=== PATIENT | male | born 1950 | race Caucasian/White ===

== ENCOUNTER → 2016-08-13 | Outpatient (CLI) | payer OTHER, MEDICARE ==
[~2016-08-13] MED LIST: CHOL400C7 PO; FLUT0.0529 NAE; GLCSUNK PO; METF500T5 PO; MULTTAB58 PO; SITA100T3 PO
[2016-08-13 09:43] LABS: BASO % 0.6 %; BASO ABS # 0.04 K/uL (0-0.2); COMPLETE YES; EOS % 3.1 %; HEMATOCRIT 43.1 % (42-52); IG% 0.9 %; LYMPH % 16.6 %; LYMPH ABS # 1.16 K/uL (1.2-3.4); MEAN CELL VOLUME 86.2 fL (80-100); MEAN CORPUSCULAR HEMOGLOBIN 28.8 pg (25-34); MEAN CORPUSCULAR HGB CONC 33.4 g/dl (32-36); MEAN PLATELET VOLUME 9.7 fL (7.4-10.4); MONO % 10.7 %; NEUT % 68.1 %; PLATELET COUNT 184 K/uL (130-400)
[2016-08-13 09:59] LABS: ESTIMATED AVERAGE GLUCOSE 151 mg/dl; HA1C FLAG Normal (Normal)
[2016-08-13 10:03] LABS: ALT/SGPT 24 U/L (12-78); AST/SGOT 16 U/L (15-37); BLOOD UREA NITROGEN 23 mg/dl (7-18); BUN/CREATININE RATIO 15.2 (10-20); CALCIUM 8.5 mg/dl (8.5-10.1); CARBON DIOXIDE 26 mmol/L (21-32); CHLORIDE 109 mmol/L (98-107); GLUCOSE 130 mg/dl (70-99); POTASSIUM 4.2 mmol/L (3.5-5.1); SODIUM 143 mmol/L (136-145)
[2016-08-13 10:05] LABS: ALB/GLOB RATIO 1.1 (0.9-2); ALKALINE PHOSPHATASE 112 U/L (45-117); CHOLESTEROL 193 mg/dl (0-200); CHOLESTEROL/HDL RATIO 4.3; HDL CHOLESTEROL 45 mg/dl; LDL CHOLESTEROL CALCULATED 132 mg/dl; TRIGLYCERIDES 78 mg/dl (0-150); VERY LOW DENSITY LIPOPROT CALC 16 mg/dl
--- NOTE | 2016-08-20 07:37 | CODING QUERY MEDICAL NECESSITY ---
CQSUPPORTING DIAGNOSIS NEEDED A supporting diagnosis is required for the test/procedure performed on this patient in order for us to be reimbursed by the patient's insurance. Please provide a supporting diagnosis for the following test/procedure listed below next to the test name along with your signature. *If there is no additional diagnosis for this patient that would support the following test/procedure please document that below next to the test/procedure. Test(s)/Procedure(s) that require a supporting diagnosis: DOS 08/13/16 GLYCATED HEMOGLOBIN Provider Signature: Date: Thank you Luciana Glover [employer] Management Once completed, please kindly fax back to [phone] For questions please call [phone]
== END | disposition home or self-care (01) ==
LOC: C.LAB 07:03
PROVIDERS: ATTEND Internal Medicine
DX: N18.9 Chronic kidney disease, unspecified (principal); E11.9 Type 2 diabetes mellitus without complications

== ENCOUNTER → 2017-03-20 | Outpatient (CLI) | payer OTHER, MEDICARE ==
[2017-03-20 09:45] LABS: BASO % 1.2 %; BASO ABS # 0.07 K/uL (0-0.2); EOS % 4.2 %; EOS ABS # 0.25 K/uL (0-0.5); HEMATOCRIT 41.1 % (42-52); IG# 0.04 K/uL (0.00-0.02); LYMPH % 16.9 %; LYMPH ABS # 1.02 K/uL (1.2-3.4); MEAN CELL VOLUME 86.3 fL (80-100); MEAN CORPUSCULAR HEMOGLOBIN 29.4 pg (25-34); MEAN CORPUSCULAR HGB CONC 34.1 g/dl (32-36); MONO % 10.6 %; MONO ABS # 0.64 K/uL (0.11-0.59); NEUT % 66.4 %; PLATELET COUNT 178 K/uL (130-400); RED CELL DISTRIBUTION WIDTH CV 13.4 % (11.5-14.5); RED CELL DISTRIBUTION WIDTH SD 42.4 fL (36.4-46.3); WHITE BLOOD COUNT 6.02 K/uL (4.8-10.8)
[2017-03-20 10:22] LABS: ALBUMIN 3.9 gm/dl (3.4-5.0); ALT/SGPT 24 U/L (12-78); BLOOD UREA NITROGEN 22 mg/dl (7-18); CALCIUM 8.8 mg/dl (8.5-10.1); CARBON DIOXIDE 24 mmol/L (21-32); CHOLESTEROL 177 mg/dl (0-200); CREATININE 1.48 mg/dl (0.60-1.40); GLUCOSE 158 mg/dl (70-99); POTASSIUM 3.9 mmol/L (3.5-5.1); SODIUM 141 mmol/L (136-145)
[2017-03-20 10:25] LABS: ALKALINE PHOSPHATASE 106 U/L (45-117); AST/SGOT 16 U/L (15-37); LDL CHOLESTEROL CALCULATED 122 mg/dl; TOTAL PROTEIN 7.7 gm/dl (6.4-8.2)
[2017-03-20 11:24] LABS: HEMOGLOBIN A1C 7.4 % (4.5-5.6)
== END | disposition home or self-care (01) ==
LOC: C.LAB 08:00
PROVIDERS: ATTEND Internal Medicine
DX: G47.33 Obstructive sleep apnea (adult) (pediatric) (principal)

== ENCOUNTER → 2017-04-13 | Outpatient (CLI) | payer OTHER, MEDICARE | END | disposition home or self-care (01) | LOC: C.LAB1850 16:20 | PROVIDERS: ATTEND Internal Medicine Nephrology | DX: N18.9 Chronic kidney disease, unspecified (principal) ==

== ENCOUNTER → 2017-07-10 | Outpatient (CLI) | payer OTHER, MEDICARE ==
[2017-07-10 09:17] LABS: ALBUMIN 4.2 gm/dl (3.4-5.0); ALT/SGPT 22 U/L (12-78); AST/SGOT 17 U/L (15-37); BLOOD UREA NITROGEN 38 mg/dl (7-18); CALCIUM 8.8 mg/dl (8.5-10.1); CARBON DIOXIDE 28 mmol/L (21-32); CHOLESTEROL 187 mg/dl (0-200); GLUCOSE 150 mg/dl (70-99); SODIUM 143 mmol/L (136-145)
[2017-07-10 09:20] LABS: ALKALINE PHOSPHATASE 97 U/L (45-117); LDL CHOLESTEROL CALCULATED 125 mg/dl; TOTAL PROTEIN 7.7 gm/dl (6.4-8.2)
== END | disposition home or self-care (01) ==
LOC: C.LAB 07:22
PROVIDERS: ATTEND Internal Medicine
DX: N18.3 Chronic kidney disease, stage 3 (moderate) (principal); M25.562 Pain in left knee

== ENCOUNTER → 2017-10-15 | Outpatient (CLI) | payer OTHER, MEDICARE ==
[2017-10-15 09:49] LABS: ALBUMIN 3.6 gm/dl (3.4-5.0); BLOOD UREA NITROGEN 24 mg/dl (7-18); CALCIUM 8.4 mg/dl (8.5-10.1); CARBON DIOXIDE 24 mmol/L (21-32); CREATININE 1.54 mg/dl (0.60-1.40); GLUCOSE 159 mg/dl (70-99); PHOSPHORUS 2.7 mg/dl (2.5-4.9); POTASSIUM 4.2 mmol/L (3.5-5.1); SODIUM 136 mmol/L (136-145)
== END | disposition home or self-care (01) ==
LOC: C.LAB 07:16
PROVIDERS: ATTEND Internal Medicine Nephrology
DX: N18.3 Chronic kidney disease, stage 3 (moderate) (principal)

== ENCOUNTER 2024-12-19 15:34 | Inpatient (IN) ==
[2024-12-19] MEDS: SODIUM CHLORIDE 0.9% 1,000 ML IV ONE (16:12)
--- NOTE | 2024-12-19 16:15 | Emergency Department Note ---
Impression & Plan Acute hypoxemic respiratory failure, Pleural effusion ED Provider Note NAME: JANUARY VALDEZ AGE: 74 SEX: M : 1950 ARRIVES VIA: Walk-In INFORMANT: Patient ED PROVIDER(S): Isac Hernandez DO CHIEF COMPLAINT: hypoxic HPI: Patient is a 74-year-old male who presents to the ER with a past medical history of renal cell carcinoma, diabetes, pulmonary nodules and pleural effusions for hypoxia. He was at his PCPs office and was found to be hypoxic at 86%. Was placed on nasal cannula and transferred here. Over a week ago he was at [facility] [place] and found to be hypoxic secondary to a pleural effusion. He was tapped and removed 2 L of fluid from his lung. He denies any new belly pain, nausea, vomiting, or diarrhea. No dysuria, urgency, or frequency. No other exacerbating or remitting factors. ADDITIONAL HISTORY OBTAINED: Per HPI Chronic Medical/Social Conditions Affecting Care: Per HPI PAST MEDICAL HISTORY:See Below PAST SURGICAL HISTORY:See Below FAMILY HISTORY:See Below SOCIAL HISTORY:See Below HOME MEDICATIONS:See Below ALLERGIES:See Below VITALS:See Below PHYSICAL EXAMINATION: GENERAL: Sitting up in bed, alert, well appearing, well nourished, no distress, non-toxic EYE EXAM: normal conjunctiva. PERRL and EOM's grossly intact. OROPHARYNX: mucous membranes are moist NECK: supple, no nuchal rigidity, no adenopathy, non-tender LUNGS: Diminished on the left. Normal chest wall mechanics HEART: no murmurs, S1 normal and S2 normal ABDOMEN: abdomen soft, non-tender, normo-active bowel sounds, no masses, no rebound or guarding. SKIN: no rashes and no bruising UPPER EXTREMITIES: upper extremities are grossly normal. LOWER EXTREMITIES: No pitting edema. NEURO EXAM: Normal sensorium, cranial nerves II-XII grossly intact, normal speech, no gross weakness of arms, no gross weakness of legs. No drift. Finger to nose intact. Gross sensation intact. MEDICAL DECISION MAKING: Patient is a 74-year-old male who presents ER for hypoxia. IV was established and blood work was obtained. He was placed on 2 L nasal cannula throughout his stay in the ER. Labs showed no significant leukocytosis. Mild anemia at 11. BMP with a glucose slightly elevated to 90. Troponin was negative. Lipase was normal. Chest x-ray consistent with a pleural effusion. Discussed case with pulmonology and the hospitalist and patient was admitted and will likely be tapped/further evaluated by pulm as an inpatient. Consults/Care Managements Discussions: Per [facility] Triage Nursing notes reviewed. Limited review of prior medical records performed Vital Signs: reviewed and remarkable for tachy Differential diagnosis: Differential diagnoses includes but is not limited to pneumonia, bronchitis, COPD/Asthma exacerbation, pneumothorax, pulmonary embolism, congestive heart failure, acute coronary syndrome ER treatment provided: See below Diagnostics interpreted by me include EKG and cardiac monitoring as listed below: -Cardiac Monitoring: An order was placed for continuous cardiac monitoring. The monitor shows a rate of 112 with sinus rhythm. -ECG: Sinus tachycardia rate of 112 Normal axis PVCs QTc 461 -Laboratory studies:Interpreted by me as stated above in MDM and shown below. Imaging studies: Xrays: As interpreted by me: Portable AP upright 1 view of the chest shows large left pleural effusion CTs show: none Procedures:none Critical Care: I have personally spent 33 minutes of critical care time in the direct management of this patient. This includes bedside care, interpretation of diagnostic studies, and testing, discussion with consultants, patient, and family members, and other required patient management activities. This 33 minutes is in excess of all separately billable procedures. Past Med/Surg History Problem List (Updated 12/19/24 @ 20:19 by Isac Hernandez DO) Pleural effusion (Acute) Acute hypoxemic respiratory failure (Acute) Recurrent left pleural effusion Gross hematuria Metastatic renal cell carcinoma (Chronic 01/20/24) Hyperlipidemia Type 2 diabetes mellitus stable per pt Hyperlipidemia Microalbuminuria due to type 2 diabetes mellitus (Chronic) Seborrheic dermatitis (Chronic) Sleep apnea (Chronic) BIPAP-compliant Arthritis (Chronic) CKD (chronic kidney disease), stage III (Chronic) Follows with [facility] (Dr. 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 Obesity Degenerative arthritis of knee, bilateral Solitary right kidney Hx of renal cell cancer History of blood transfusion Surgical History History of cervical spinal arthrodesis S/P right rotator cuff repair History of left knee replacement History of nephrectomy, left History of hernia repair History of anesthesia reaction History of colonoscopy History of neck surgery Nausea and vomiting after administration of anesthetic agent History of sinus surgery History of tonsillectomy History of left knee surgery Family History Father Hypertension Brother Heart disease Hypertension Sister Family history of diabetes mellitus Other No family history of adverse response to anesthesia Denies family history of Ovarian cancer Prostate cancer Myocardial infarction Breast cancer Colorectal cancer Social History Smoking Status: Never smoker Tobacco Type: Smokeless Tobacco (Dip or Chew) Age Started Using Tobacco: 19; Age Quit Using Tobacco: 43; Second Hand Exposure: No; Do You Dip or Chew Tobacco: No (quit 35+ years ago); Hx Alcohol Use: Yes Alcohol type: beer Alcohol Intake Frequency Comment: rare Hx Substance Use: No Preferred Language: Yi Communication Ability: Effective Visual Impairment: Limited Hearing Ability: Normal Parts Department Manager Required: No Beliefs That Will Affect Care: None marital status: Current Living Situation: Spouse current occupational status: employed current occupation: SELF EMPLOYED [employer] How many Children do You have: 3 Feels Safe at Home: Yes Childhood Exposure to Second-Hand Smoke: Yes caffeine: Yes (coffee, diet pepsi ) Dental Care, Regularly: Yes Physical Activity Frequency: 1-2 Times per Week Physical Activity Frequency Comment: Walk, riding indoor bike, work outside Seatbelt Use: always Sunscreen Use: Yes Assistive Devices: BiPap and Glasses Allergies Allergies Allergy/AdvReac Type Severity Reaction Status Date / Time tetanus toxoid, adsorbed Allergy Mild Arm Verified 12/19/24 14:31 swelling, low-grade fever tree and shrub pollen Allergy Mild Bantam Verified 12/19/24 14:31 tree- sinus congestion NSAIDS (Non-Steroidal AdvReac Unknown Unknown Verified 12/19/24 14:31 Anti-Inflamma Home Meds Home Medications Medication Instructions Recorded Confirmed multivitamin (Multiple Vitamins 1 tab PO QAM 02/24/18 12/19/24 tablet) loratadine 10 mg tablet (Claritin) 10 mg PO QAM 04/26/19 12/19/24 hydrocortisone 2.5 % topical 1 applic topical BID PRN . 02/17/23 12/19/24 ointment baclofen 5 mg tablet 2.5 mg PO BID 05/02/24 12/19/24 buprenorphine 10 mcg/hour weekly 1 patch transdermal Q7D 05/02/24 12/19/24 transdermal patch (Butrans) docusate sodium 100 mg capsule 100 mg PO BID 05/02/24 12/19/24 gabapentin 100 mg capsule 100 mg PO TID 05/02/24 12/19/24 hydromorphone 4 mg tablet 4 mg PO Q4H PRN Pain 05/02/24 12/19/24 ondansetron HCl 4 mg tablet 4 mg PO Q6H PRN n/v 05/02/24 12/19/24 polyethylene glycol 3350 17 gram 17 g PO DAILY 05/02/24 12/19/24 oral powder packet CPAP Supplies 12/19/24 12/19/24 lenvatinib 10 mg/day (10 mg x 1) 10 mg PO UD 12/19/24 12/19/24 capsule (Lenvima) Previous Rx's Medication Instructions Recorded blood-glucose meter (OneTouch #1 ea 02/16/23 Verio Reflect Meter) insulin syringe-needle U-100 0.3 #100 ea 02/14/24 mL 31 gauge x 5/16" (BD Insulin Syringe Ultra-Fine) OneTouch Verio test strips (blood #100 ea 03/31/24 sugar diagnostic) lancets 30 gauge (OneTouch Delica #100 ea 03/31/24 Plus Lancet) blood-glucose sensor (Dexcom G7 #1 ea 05/02/24 Sensor device) insulin aspart U-100 100 unit/mL 7 unit (0.07 mL) subcut TID #60 mL 05/02/24 (3 mL) subcutaneous pen (Novolog FlexPen U-100 Insulin aspart) tizanidine 4 mg tablet 4 mg PO BID PRN muscle spasticity 05/02/24 #30 tabs acetone (urine) test (Ketostix #25 ea 05/03/24 strips) glucagon 3 mg/actuation nasal 3 mg intranasal ONCE PRN severe 05/03/24 spray (Baqsimi) hypoglycemia (unconscious) #2 ea clotrimazole-betamethasone 1 1 applic topical BID #45 grams 05/09/24 %-0.05 % topical cream pen needle, diabetic 32 gauge x #200 ea 08/28/24" pen needle, diabetic 32 gauge x #400 ea 10/20/24" (Elyse 2nd Gen Pen Needle) Lantus Courtostar U-100 Insulin 100 11 unit (0.11 mL) subcut DAILY #30 12/08/24 unit/mL (3 mL) subcutaneous pen mL (insulin glargine) Results & Data (ED) Vital Signs Vital Signs - 24 hr 12/19/24 15:46 12/19/24 16:07 12/19/24 16:18 Temperature 36.4 C L Temperature Source Oral Pulse Rate 118 H 112 H Pulse Rate [Apical] Respiratory Rate 24 Respiratory Effort / Characteristics SOB on Exertion Spontaneous Respiratory Pattern Regular Blood Pressure 126/82 Blood Pressure [Right Arm] Blood Pressure Mean 96 Blood Pressure Mean [Right Arm] Pulse Oximetry 94 Oxygen Delivery Method Room Air Oxygen Flow Rate Sepsis Recent Fever Within 48 Hours No Sepsis New/Unexplained Change in Mental Status No Sepsis Action Taken by Nursing No Action Required Oxygen Flow Rate - Titration Pulse Oximetry Post Tiitration 12/19/24 16:18 12/19/24 16:18 12/19/24 16:18 Temperature Temperature Source Pulse Rate 106 H Pulse Rate [Apical] 106 H Respiratory Rate 16 16 Respiratory Effort / Characteristics Respiratory Pattern Blood Pressure Blood Pressure [Right Arm] 126/86 Blood Pressure Mean Blood Pressure Mean [Right Arm] 99 Pulse Oximetry 88 L 96 96 Oxygen Delivery Method Nasal Cannula Nasal Cannula Nasal Cannula Oxygen Flow Rate 0 2 2 Sepsis Recent Fever Within 48 Hours Sepsis New/Unexplained Change in Mental Status Sepsis Action Taken by Nursing Oxygen Flow Rate - Titration 2 Pulse Oximetry Post Tiitration 96 Laboratory Data 12/19/24 16:14 12/19/24 16:14 Lab Results 12/19/24 Range/Units 16:14 WBC 8.41 (4.8-10.8) K/ul RBC 4.45 L (4.70-6.10) M/uL Hgb 11.7 L (14.0-18.0) g/dl Hct 36.8 L (42.0-52.0) % MCV 82.7 (80.0-100.0) fL MCH 26.3 (25.0-34.0) pg MCHC 31.8 L (32.0-36.0) g/dL RDW Std Deviation 50.8 H (36.4-46.3) fL RDW Coeff of Lonny 16.9 H (11.5-14.5) % Plt Count 212 (130-400) K/uL MPV 10.0 (9.4-12.4) fL Immature Gran % (Auto) 1.8 % Neut % (Auto) 77.5 % Lymph % (Auto) 5.2 % [place] % (Auto) 12.4 % Eos % (Auto) 2.5 % Baso % (Auto) 0.6 % Neut # (Auto) 6.52 H (1.40-6.50) K/uL Lymph # (Auto) 0.44 L (1.20-3.40) K/uL [place] # (Auto) 1.04 H (0.11-0.59) K/uL Eos # (Auto) 0.21 (0.00-0.50) K/uL Baso # (Auto) 0.05 (0.00-0.20) K/uL Immature Gran # (Auto) 0.15 (0.01-0.20) K/uL Sodium 134 L (136-145) mmol/L Potassium TNP Chloride 96 L (98-107) mmol/L Carbon Dioxide 29 (21-32) mmol/L Anion Gap 9 (3-11) BUN 35 H (6-23) mg/dl Creatinine 1.37 (0.6-1.4) mg/dl Est Cr Clr Drug Dosing 52.5 ml/min eGFR 54.47 BUN/Creatinine Ratio 25.5 H (10-20) Glucose 290 H (70-99(Fasting)) mg/dl Calcium 9.6 (8.6-10.3) mg/dl Total Bilirubin 0.4 (0.2-1.0) mg/dl AST TNP ALT 23 (7-52) U/L Alkaline Phosphatase 102 (34-104) U/L Troponin I High Sens 5.8 (0-20) pg/ml Total Protein 7.1 (6.0-8.3) gm/dl Albumin 3.5 (3.4-5.0) gm/dl Globulin 3.6 (2.5-4.0) gm/dl Albumin/Globulin Ratio 1.0 (0.9-2) Lipase 6 L (11-82) U/L Administered Medications Heparin Sodium (Porcine) (Heparin Sod 5,000 Unit/0.5 Ml Vial) 5,000 units SQ Q8 JOHN Stop: 01/18/25 21:59 Last Admin: 12/19/24 19:45 Dose: Not Given Documented By: Admin: 12/19/24 19:20 Dose: Not Given Documented By: MG Discontinued Medications Sodium Chloride (Nss) 1,000 mls @ 999 mls/hr IV .Q1H1M ONE Stop: 12/19/24 17:10 Last Infusion: 12/19/24 17:18 Dose: Infused Documented By: Admin: 12/19/24 16:12 Dose: 999 mls/hr Documented By: LORENZO Imaging Data Radiologist's Impression: Chest X-Ray 12/19/24 15:59 EXAM: X-ray chest one-view portable CLINICAL HISTORY: Low O2 [place]: [place] [address] 24 TECHNIQUE: AP portable semierect FINDINGS: The chest is well-expanded. Near-total opacification of the left hemithorax noted with small amount of gas, possibly aerated lung in the left lung apex. Right-sided Mediport catheter present with distal tip in the expected position of the atriocaval junction. No right lung opacification, mass or pleural effusion. Trachea is midline. Moderate osseous demineralization is noted. IMPRESSION: Near-total opacification of the left hemithorax favoring a large pleural effusion. Thoracentesis could be considered if appropriate. ACT 112: Positive. There are findings on this examination that require communication between the performing entity and the patient following Patient Test Result Information Act ([place] ACT 112) guidelines. Electronically signed by Dara Pederson 12-19-2024 4:41 PM Discharge Plan Visit Data Chief Complaint: Respiratory Problems Stated Complaint: OX LOW ED Provider: Isac Hernandez Discharge Problem: Acute hypoxemic respiratory failure, Pleural effusion Patient Disposition: Admitted As Inpatient Condition: Serious Discharge Instructions Interventions: ED Discharge Assessment Last Done: 12/19/24 18:35
[2024-12-19 16:31] LABS: Hematocrit (blood only) 36.8 % (42.0-52.0); Hemoglobin 11.7 g/dl (14.0-18.0); Immature Granulocytes # (auto) 0.15 K/uL (0.01-0.20); Immature Granulocytes % (auto) 1.8 %; Mean Corpuscular Hemoglobin 26.3 pg (25.0-34.0); Mean Corpuscular Volume 82.7 fL (80.0-100.0); Platelet Count 212 K/uL (130-400); RDW Standard Deviation 50.8 fL (36.4-46.3); Red Blood Count 4.45 M/uL (4.70-6.10); White Blood Count 8.41 K/ul (4.8-10.8)
--- NOTE | 2024-12-19 16:42 | XRay Report ---
EXAM: X-ray chest one-view portable CLINICAL HISTORY: Low O2 [place]: [place] [id number] [id number] TECHNIQUE: AP portable semierect FINDINGS: The chest is well-expanded. Near-total opacification of the left hemithorax noted with small amount of gas, possibly aerated lung in the left lung apex. Right-sided Mediport catheter present with distal tip in the expected position of the atriocaval junction. No right lung opacification, mass or pleural effusion. Trachea is midline. Moderate osseous demineralization is noted. IMPRESSION: Near-total opacification of the left hemithorax favoring a large pleural effusion. Thoracentesis could be considered if appropriate. ACT 112: Positive. There are findings on this examination that require communication between the performing entity and the patient following Patient Test Result Information Act ([place] ACT 112) guidelines. Electronically signed by Dara Pederson 12-19-2024 4:41 PM
[2024-12-19 17:03] LABS: Alanine Aminotransferase 23 U/L (7-52); Albumin Globulin Ratio 1.0 (0.9-2); Albumin Level 3.5 gm/dl (3.4-5.0); Alkaline Phosphatase 102 U/L (34-104); Anion Gap 9 (3-11); Bilirubin,Total 0.4 mg/dl (0.2-1.0); Blood Urea Nitrogen 35 mg/dl (6-23); Calcium 9.6 mg/dl (8.6-10.3); Carbon Dioxide 29 mmol/L (21-32); Chloride 96 mmol/L (98-107); Creatinine Clr Calc Pharmacy 52.5 ml/min; Globulin 3.6 gm/dl (2.5-4.0); Glucose 290 mg/dl (70-99(Fasting)); Lipase 6 U/L (11-82); Sodium 134 mmol/L (136-145); Total Protein 7.1 gm/dl (6.0-8.3)
[2024-12-19] MEDS ORDERED: ONDANSETRON 4 MG OD TAB PO PRN (17:26)
[2024-12-19] MEDS ORDERED: CARBOHYDRATES FOR HYPOGLYCEMIA PO PRN (17:30)
[2024-12-19] MEDS ORDERED: GLUCOSE 10 TAB/TUBE PO PRN (17:30)
[2024-12-19] MEDS ORDERED: GLUCAGON FOR INJ 1 MG VIAL SQ PRN (17:30)
[2024-12-19] MEDS ORDERED: DEXTROSE 50% 50 ML SYRINGE IV PRN (17:30)
[2024-12-19] MEDS ORDERED: GLUCOSE 40% GEL 15 GM TUBE PO PRN (17:30)
[2024-12-19] MEDS: HEPARIN SOD 5,000 UNIT/0.5 ML VIAL SQ SCH (19:20)
--- NOTE | 2024-12-19 19:23 | History & Physical Report ---
Date of Service December 19, 2024 Assessment & Plan (1) Recurrent left pleural effusion: Plan: -CXR shows near-total opacification of the left hemithorax favoring a large pleural effusion -h/o renal cell CA with mets to the lung -recent thoarcentesis last Wednesday with 2L fluid+ for mets -thoracentesis ordered -pulmonary consulted -trey prn (2) Type 2 diabetes mellitus: Plan: -Pharm consulted for glycemic managment (3) Metastatic renal cell carcinoma: Plan: -follow with Dr. Pierce -receiving chemo/immunotherapy -Know mets ot left ribs, spine and femur Admission and Anticipated Discharge Date Admission Date: December 19, 2024 History of Present Illness Chief Complaint: SOB Primary Care Provider: Chantal Saxena DO Pt is a 74 y/o male with pmh of renal cell CA with mets, DM, who presents from PMD's office after he was noted to have 02 sats of 86%. Pt had large left pleural effusion s/p 2L thoracentesis last Wednesday [facility]. The results of the pleural fluid were positive for renal cell CA. In the ER his CXR shows near- total opacification of the left hemithorax favoring a large pleural effusion. Pt is being admitted for further pulmonary evaluation and repeat thoracentesis. Allergies Allergy/AdvReac Type Severity Reaction Status Date / Time tetanus toxoid, adsorbed Allergy Mild Arm Verified 12/19/24 14:31 swelling, low-grade fever tree and shrub pollen Allergy Mild [place] Verified 12/19/24 14:31 tree- sinus congestion NSAIDS (Non-Steroidal AdvReac Unknown Unknown Verified 12/19/24 14:31 Anti-Inflamma Home Medications Medication Instructions Recorded Confirmed Type multivitamin (Multiple Vitamins 1 tab PO QAM 02/24/18 12/19/24 History tablet) loratadine 10 mg tablet (Claritin) 10 mg PO QAM 04/26/19 12/19/24 History blood-glucose meter (Flow StudioTouch #1 ea 02/16/23 12/19/24 Rx Verio Reflect Meter) hydrocortisone 2.5 % topical 1 applic topical BID PRN . 02/17/23 12/19/24 History ointment insulin syringe-needle U-100 0.3 #100 ea 02/14/24 12/19/24 Rx mL 31 gauge x 5/16" (BD Insulin Syringe Ultra-Fine) OneTouch Verio test strips (blood #100 ea 03/31/24 12/19/24 Rx sugar diagnostic) lancets 30 gauge (OneTouch Delica #100 ea 03/31/24 12/19/24 Rx Plus Lancet) baclofen 5 mg tablet 2.5 mg PO BID 05/02/24 12/19/24 History blood-glucose sensor (Dexcom G7 #1 ea 05/02/24 12/19/24 Rx Sensor device) buprenorphine 10 mcg/hour weekly 1 patch transdermal Q7D 05/02/24 12/19/24 History transdermal patch (Butrans) docusate sodium 100 mg capsule 100 mg PO BID 05/02/24 12/19/24 History gabapentin 100 mg capsule 100 mg PO TID 05/02/24 12/19/24 History hydromorphone 4 mg tablet 4 mg PO Q4H PRN Pain 05/02/24 12/19/24 History insulin aspart U-100 100 unit/mL 7 unit (0.07 mL) subcut TID #60 mL 05/02/24 12/19/24 Rx (3 mL) subcutaneous pen (Novolog FlexPen U-100 Insulin aspart) ondansetron HCl 4 mg tablet 4 mg PO Q6H PRN n/v 05/02/24 12/19/24 History polyethylene glycol 3350 17 gram 17 g PO DAILY 05/02/24 12/19/24 History oral powder packet tizanidine 4 mg tablet 4 mg PO BID PRN muscle spasticity 05/02/24 12/19/24 Rx #30 tabs acetone (urine) test (Ketostix #25 ea 05/03/24 12/19/24 Rx strips) glucagon 3 mg/actuation nasal 3 mg intranasal ONCE PRN severe 05/03/24 12/19/24 Rx spray (Baqsimi) hypoglycemia (unconscious) #2 ea clotrimazole-betamethasone 1 1 applic topical BID #45 grams 05/09/24 12/19/24 Rx %-0.05 % topical cream pen needle, diabetic 32 gauge x #200 ea 08/28/24 12/19/24 Rx 5/32" pen needle, diabetic 32 gauge x #400 ea 10/20/24 12/19/24 Rx 5/32" (Elyse 2nd Gen Pen Needle) Lantus Solostar U-100 Insulin 100 11 unit (0.11 mL) subcut DAILY #30 12/08/24 Rx unit/mL (3 mL) subcutaneous pen mL (insulin glargine) CPAP Supplies 12/19/24 12/19/24 History lenvatinib 10 mg/day (10 mg x 1) 10 mg PO UD 12/19/24 12/19/24 History capsule (Lenvima) Past Med/Surg History Problem List (Updated 12/19/24 @ 19:19 by Castillo Dash MD) Recurrent left pleural effusion Gross hematuria Metastatic renal cell carcinoma (Chronic 01/20/24) Hyperlipidemia Type 2 diabetes mellitus stable per pt Hyperlipidemia Microalbuminuria due to type 2 diabetes mellitus (Chronic) Seborrheic dermatitis (Chronic) Sleep apnea (Chronic) BIPAP-compliant Arthritis (Chronic) CKD (chronic kidney disease), stage III (Chronic) Follows with [place] (Dr. 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 Obesity Degenerative arthritis of knee, bilateral Solitary right kidney Hx of renal cell cancer History of blood transfusion Surgical History History of cervical spinal arthrodesis S/P right rotator cuff repair History of left knee replacement History of nephrectomy, left History of hernia repair History of anesthesia reaction History of colonoscopy History of neck surgery Nausea and vomiting after administration of anesthetic agent History of sinus surgery History of tonsillectomy History of left knee surgery Family History Father Hypertension Brother Heart disease Hypertension Sister Family history of diabetes mellitus Other No family history of adverse response to anesthesia Denies family history of Ovarian cancer Prostate cancer Myocardial infarction Breast cancer Colorectal cancer Social History Smoking Status: Never smoker Tobacco Type: Smokeless Tobacco (Dip or Chew) Age Started Using Tobacco: 19; Age Quit Using Tobacco: 43; Second Hand Exposure: No; Do You Dip or Chew Tobacco: No (quit 35+ years ago); Hx Alcohol Use: Yes Alcohol type: beer Alcohol Intake Frequency Comment: rare Hx Substance Use: No Preferred Language: Ivorian Communication Ability: Effective Visual Impairment: Limited Hearing Ability: Normal Apartment Rental Agent Required: No Beliefs That Will Affect Care: None marital status: Current Living Situation: Spouse current occupational status: employed 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 HENT: Negative for neck pain/stiffness, headache, congestion, sore throat, swelling. EYES: Negative for discharge/pain or vision changes. RESP: Negative for cough/hemoptysis and + shortness of breath. CV: Negative chest pain, difficulty breathing, palpitations. ABD: Negative pain, nausea, vomiting. : Negative increase frequency, dysuria, blood in urine or stool. MUSC: Negative for muscle aches, edema. SKIN: Negative rash, lesions/sores. NEURO: Negative headache, dizziness, weakness. Physical Exam Physical Exam: GENERAL APPEARANCE NAD, activity normal for age, well developed/ well nourished, no cyanosis, pallor, or diaphoresis. EYES lids/conjunctiva normal. EARS/NOSE/THROAT Mucous membranes moist, nares normal, lips/teeth normal uvula midline without oral pharyngeal erythema, exudate or swelling TMs normal bilaterally. No lymphangitis/lymphedema. HEAD/NECK normocephalic atraumatic, no facial trauma, neck is supple. RESPIRATORY respiratory effort normal, speaks in full sentences, no tripod position, no accessory muscle use. Lungs clear to auscultation without rhonchi, wheezes, rales CARDIAC Regular rate and rhythm, no edema. ABDOMINAL Soft, ND/NT. No evidence of fluid wave. No pulsatile masses on exam, rebound tenderness, Hancock sign or pain over Mcburney's point. MUSCLES/EXTREMITIES No abnormal range of motion, no swelling. SKIN Warm, pink and dry. No rashes, dermatoses, petechiae or lesions. NEUROLOGICAL Speech is clear and appropriate. Normal level of consciousness. Gait and coordination are normal. 5/5 strength in all extremities. PSYCH Normal mood and affect. Judgement/competence is appropriate Results & Data Results & Data Vital Signs (Past 12 Hours) Vital Signs Temp Pulse Pulse Resp BP BP Pulse Ox 12/19/24 16:55 103 H 16 142/87 H 95 12/19/24 16:18 106 H 16 96 12/19/24 16:18 106 H 16 126/86 96 12/19/24 16:18 88 L 12/19/24 16:07 112 H 12/19/24 15:46 36.4 C L 118 H 24 126/82 94 O2 Del Method O2 Flow Rate 12/19/24 16:55 Nasal Cannula 2 12/19/24 16:18 Nasal Cannula 2 12/19/24 16:18 Nasal Cannula 2 12/19/24 16:18 Nasal Cannula 0 12/19/24 16:07 12/19/24 15:46 Room Air PG Care Time/CCT Total # of Minutes Spent Total Time Spent with Patient: Total time spent is greater than 50% in coordination of care (as documented) at patient's floor/unit and/or counseling patient: Coding Level of Care Code 65925 INT INP/OBS CARE MIN Diagnoses Recurrent left pleural effusion J90 Type 2 diabetes mellitus E11.9 Diabetes mellitus director drug safety insulin use: without director drug safety use Renal cell carcinoma of left kidney metastatic to other site C64.2 Laterality: left (2) Type 2 diabetes mellitus Diabetes mellitus senior care insulin use: without director drug safety use (3) Metastatic renal cell carcinoma Laterality: left Qualified Code(s): C64.2 - Malignant neoplasm of left kidney, except renal pelvis
[2024-12-19] MEDS ORDERED: ALBUT/IPRATROP 3MG/0.5MG NEB 3 ML VIAL NEB PRN (19:24)
[2024-12-19 20:39] LABS: Potassium 3.4 mmol/L (3.5-5.1)
[2024-12-19 20:52] LABS: Albumin Level 3.3 gm/dl (3.4-5.0); Bilirubin,Total 0.4 mg/dl (0.2-1.0)
[2024-12-19 20:58] LABS: Total Protein 6.3 gm/dl (6.0-8.3)
[2024-12-19] MEDS ORDERED: GABAPENTIN 300 MG CAP PO SCH (21:00)
[2024-12-19] MEDS: GABAPENTIN 100 MG CAP PO SCH ×2 (21:14)
[2024-12-19] MEDS: DOCUSATE SODIUM 100 MG CAP PO SCH (21:14)
[2024-12-19] MEDS: INSULIN ASPART PER UNIT CHARGE SC SCH (21:26)
[2024-12-19] MEDS ORDERED: REMOVE & WASTE BUTRANS PATCH 1 EA EA SCH (21:45)
[2024-12-19] MEDS: CHECK BUPRENORPHINE PATCH SCH (22:00)
[2024-12-20 07:22] LABS: Hematocrit (blood only) 33.9 % (42.0-52.0); Hemoglobin 10.8 g/dl (14.0-18.0); Mean Corpuscular Hemoglobin 26.2 pg (25.0-34.0); Mean Corpuscular Volume 82.3 fL (80.0-100.0); Platelet Count 183 K/uL (130-400); RDW Standard Deviation 50.6 fL (36.4-46.3); Red Blood Count 4.12 M/uL (4.70-6.10); White Blood Count 6.80 K/ul (4.8-10.8)
[2024-12-20 07:41] LABS: Anion Gap 7.0 (3-11); Blood Urea Nitrogen 26.0 mg/dl (6-23); Calcium 8.9 mg/dl (8.6-10.3); Carbon Dioxide 29.0 mmol/L (21-32); Chloride 100.0 mmol/L (98-107); Creatinine Clr Calc Pharmacy 62.6 ml/min; Glucose 165.0 mg/dl (70-99(Fasting)); Potassium 3.6 mmol/L (3.5-5.1); Sodium 136.0 mmol/L (136-145)
--- NOTE | 2024-12-20 08:08 | Pulmonary Consultation ---
Date of Consultation December 20, 2024 Assessment & Plan (1) Metastatic renal cell carcinoma: Laterality: left Qualified Code(s): C64.2 - Malignant neoplasm of left kidney, except renal pelvis (2) Malignant pleural effusion: (3) Acute hypoxemic respiratory failure: Plan Plan is for thoracentesis today at bedside. Patient is not on anticoagulation or antiplatelets. Patient is agreeable. We will send for full fluid analysis including cultures, cell count and will repeat cytology. I explained to the patient that this effusion may recur rapidly given his clinical history. He is hesitant for an indwelling catheter but he understands that he will likely require a PleurX catheter in the very near future. Thank you for this consult. I will follow with you. History of Present Illness Reason for Consultation: Malignant pleural effusion Requesting Physician: Castillo Dash MD Attending Physician: Castillo Dash MD History of Present Illness Patient is a 74-year-old male with a past medical history significant for metastatic clear-cell kidney cancer (diagnosed 2012 status post left nephrectomy) with known metastases to the lung (left lower lobe CT needle guided biopsy January 2024) with additional lesions in the left upper lobe, ribs, thoracic spine and left femur. The patient has completed palliative radiation in the past to the left upper lobe, spine, left pleural-based mass and left femoral head. He was started on Keytruda in March 2024 and remains on this therapy. Was on lenvatinib daily. He follows with [facility] pulmonary and [facility] oncology. The patient in August 2024 was noted to have increasing left upper lobe patchy consolidation and GGO opacities which was thought to be postradiation changes versus pneumonia, other osseous metastases appeared stable. On December 15, 2024 the patient underwent left-sided thoracentesis with 2 L of fluid collected. Results from this total effusion were reportedly positive for renal cell cancer. The patient had improvement in his breathing after this. The patient then presented to our emergency department on 12/19/2024 with hypoxia. Imaging of the chest showed near-total opacification of the left hemithorax. The patient was admitted to the hospital and pulmonary was consulted for further recommendations for pulm malignant pleural effusion. When examined the patient today he is resting comfortably on nasal cannula. He endorses that the last time he had the thoracentesis done just this past Wednesday he did have a significant improvement in his breathing. He was told that the fluid had malignant cells in it. I discussed with him the likelihood of this being a recurring problem and the need for a likely indwelling PleurX catheter. The patient is hesitant to have this procedure done as this is his only second thoracentesis that he is requiring. I explained to him that this will likely recur quickly given his history and he expressed understanding. He is not taking any anticoagulation or antiplatelets. Is eager to have thoracentesis performed today. Allergies Allergy/AdvReac Type Severity Reaction Status Date / Time tetanus toxoid, adsorbed Allergy Mild Arm Verified 12/19/24 14:31 swelling, low-grade fever tree and shrub pollen Allergy Mild [place] Verified 12/19/24 14:31 tree- sinus congestion NSAIDS (Non-Steroidal AdvReac Unknown Unknown Verified 12/19/24 14:31 Anti-Inflamma Home Medications Medication Instructions Recorded Confirmed Type multivitamin (Multiple Vitamins 1 tab PO QAM 02/24/18 12/19/24 History tablet) loratadine 10 mg tablet (Claritin) 10 mg PO QAM 04/26/19 12/19/24 History blood-glucose meter (OneTouch #1 ea 02/16/23 12/19/24 Rx Verio Reflect Meter) hydrocortisone 2.5 % topical 1 applic topical BID PRN . 02/17/23 12/19/24 History ointment insulin syringe-needle U-100 0.3 #100 ea 02/14/24 12/19/24 Rx mL 31 gauge x 5/16" (BD Insulin Syringe Ultra-Fine) OneTouch Verio test strips (blood #100 ea 03/31/24 12/19/24 Rx sugar diagnostic) lancets 30 gauge (OneTouch Delica #100 ea 03/31/24 12/19/24 Rx Plus Lancet) baclofen 5 mg tablet 2.5 mg PO BID 05/02/24 12/19/24 History blood-glucose sensor (Zumobi G7 #1 ea 05/02/24 12/19/24 Rx Sensor device) buprenorphine 10 mcg/hour weekly 1 patch transdermal Q7D 05/02/24 12/19/24 History transdermal patch (Butrans) docusate sodium 100 mg capsule 100 mg PO BID 05/02/24 12/19/24 History gabapentin 100 mg capsule 100 mg PO TID 05/02/24 12/19/24 History hydromorphone 4 mg tablet 4 mg PO Q4H PRN Pain 05/02/24 12/19/24 History insulin aspart U-100 100 unit/mL 7 unit (0.07 mL) subcut TID #60 mL 05/02/24 12/19/24 Rx (3 mL) subcutaneous pen (Novolog FlexPen U-100 Insulin aspart) ondansetron HCl 4 mg tablet 4 mg PO Q6H PRN n/v 05/02/24 12/19/24 History polyethylene glycol 3350 17 gram 17 g PO DAILY 05/02/24 12/19/24 History oral powder packet tizanidine 4 mg tablet 4 mg PO BID PRN muscle spasticity 05/02/24 12/19/24 Rx #30 tabs acetone (urine) test (Ketostix #25 ea 05/03/24 12/19/24 Rx strips) glucagon 3 mg/actuation nasal 3 mg intranasal ONCE PRN severe 05/03/24 12/19/24 Rx spray (Baqsimi) hypoglycemia (unconscious) #2 ea clotrimazole-betamethasone 1 1 applic topical BID #45 grams 05/09/24 12/19/24 Rx %-0.05 % topical cream pen needle, diabetic 32 gauge x #200 ea 08/28/24 12/19/24 Rx 5/32" pen needle, diabetic 32 gauge x #400 ea 10/20/24 12/19/24 Rx 5/32" (Elyse 2nd Gen Pen Needle) Lantus Solostar U-100 Insulin 100 11 unit (0.11 mL) subcut DAILY #30 12/08/24 12/19/24 Rx unit/mL (3 mL) subcutaneous pen mL (insulin glargine) CPAP Supplies 12/19/24 12/19/24 History lenvatinib 10 mg/day (10 mg x 1) 10 mg PO UD 12/19/24 12/19/24 History capsule (Lenvima) Patient History Medical History 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 Mass of left lung Statin myopathy Rotator cuff impingement syndrome Right knee DJD Obesity Degenerative arthritis of knee, bilateral Solitary right kidney Hx of renal cell cancer surgery only History of blood transfusion with cervical fusion Surgical History History of cervical spinal arthrodesis S/P right rotator cuff repair History of left knee replacement History of nephrectomy, left Robotic left (2011) History of hernia repair Open right inguinal and umbilical hernia (03/31/2018): Grade 3 view with pressure, MAC#3, ETT 7.5 at [facility] (no issues per anesthesia progress note) History of anesthesia reaction Apnea with anesthesia emergence in the past. [place] r/t SHAYNE per patient. He reports with one episode anesthesia administered again in setting of severe PONV, does not believe was re-intubated. Denies additional episodes with IV meds for PONV. History of colonoscopy 2020 History of neck surgery Cervical fusion (age 16 r/t cervical spine fracture) Nausea and vomiting after administration of anesthetic agent History of sinus surgery History of tonsillectomy History of left knee surgery x 2. Meniscal repair, ACL replacement. Family History Father Hypertension Brother Heart disease Hypertension Sister Family history of diabetes mellitus Other No family history of adverse response to anesthesia Denies family history of Ovarian cancer Prostate cancer Myocardial infarction Breast cancer Colorectal cancer Social History Smoking Status: Never smoker Tobacco Type: Smokeless Tobacco (Dip or Chew) Age Started Using Tobacco: 19; Age Quit Using Tobacco: 43; Second Hand Exposure: No; Do You Dip or Chew Tobacco: No; Hx Alcohol Use: No Hx Substance Use: No Preferred Language: Turkmen Communication Ability: Effective Visual Impairment: Limited Hearing Ability: Normal Manager Marketing Communication Required: No Beliefs That Will Affect Care: None marital status: Current Living Situation: Spouse Current Living Situation Comment: Lives with spouse in home current occupational status: employed current occupation: SELF EMPLOYED CONTRUCTION How many Children do You have: 3 Feels Safe at Home: Yes Childhood Exposure to Second-Hand Smoke: Yes caffeine: Yes (coffee, diet pepsi ) Dental Care, Regularly: Yes Physical Activity Frequency: 1-2 Times per Week Physical Activity Frequency Comment: Walk, riding indoor bike, work outside Seatbelt Use: always Sunscreen Use: Yes Assistive Devices: Cane and Walker Review of Systems Review of Systems: A 12 point review of systems was obtained in detail. Negative except as noted in HPI. Physical Exam Physical Exam: Physical examination: General: Well-appearing, well-nourished and not in acute distress. HEENT: Normocephalic, atraumatic. Extraocular movements intact. Sclera are nonicteric. No JVD appreciated. Skin: Warm and dry. No rashes appreciated. No jaundice appreciated. Cardiovascular: Heart is a regular rate and rhythm, no murmurs appreciated on my exam. No significant lower extremity edema. Lungs: Clear on the right, absent breath sounds appreciated on the left. Fallg-ry-goso ultrasound shows a large pleural effusion with atelectatic lung, some fibrinous material with septations appreciated. Abdomen: Nondistended, nontender to palpation. Musculoskeletal: Normal muscle mass and tone. No gross joint deformity abnormalities. No effusions appreciated. Neurologic: Awake and alert, oriented. CN II through XII are grossly intact. Speech is fluent. Nonfocal exam. Psychiatric: Appropriate cooperative during my exam. Results & Data Results & Data Vital Signs (Past 12 Hours) Vital Signs Temp Pulse Pulse Pulse Resp BP Pulse Ox 12/20/24 07:50 36.6 C 85 17 116/78 97 12/20/24 03:41 36.5 C 93 H 20 124/79 95 12/19/24 23:39 36.5 C 95 H 20 109/67 95 12/19/24 22:00 101 H O2 Del Method O2 Flow Rate 12/20/24 07:50 Nasal Cannula 2 12/20/24 03:41 Nasal Cannula 2 12/19/24 23:39 Nasal Cannula 2 12/19/24 22:00 PG Care Time/CCT Total # of Minutes Spent Total Time Spent with Patient: Total time spent is greater than 50% in coordination of care (as documented) at patient's floor/unit and/or counseling patient: [place] [address] IN/OBS CONSULT LVL 3,45M Patient Type New History Detailed Exam Detailed Diagnoses Renal cell carcinoma of left kidney metastatic to other site C64.2 Laterality: left Malignant pleural effusion J91.0 Acute hypoxemic respiratory failure J96.01
[2024-12-20] MEDS: MULTIVITAMIN TAB PO SCH (08:33)
[2024-12-20] MEDS: LORATADINE 10 MG TAB PO SCH (08:33)
[2024-12-20] MEDS: ONDANSETRON INJ 2 MG/ML 2 ML VIAL IV PRN (08:36)
[2024-12-20] MEDS: LANTUS PER UNIT CHARGE SC SCH (08:48)
--- NOTE | 2024-12-20 10:33 | Hospitalist Progress Note ---
Date of Service December 20, 2024 Assessment & Plan (1) Recurrent left pleural effusion: Plan: -CXR shows near-total opacification of the left hemithorax favoring a large pleural effusion -h/o renal cell CA with mets to the lung -recent thoarcentesis last Wednesday with 2L fluid+ for mets -thoracentesis ordered -pulmonary consulted -trey bolton (2) Type 2 diabetes mellitus: Plan: -Pharm consulted for glycemic managment (3) Metastatic renal cell carcinoma: Plan: -follow with Dr. Pierce -receiving chemo/immunotherapy -Know mets ot left ribs, spine and femur Admission and Anticipated Discharge Date Admission Date: December 19, 2024 Subjective No events overnight. Review of Systems Review of Systems: CONST: Negative for fever, body aches and chills. HENT: Negative for neck pain/stiffness, headache, congestion, sore throat, swelling. EYES: Negative for discharge/pain or vision changes. RESP: Negative for cough/hemoptysis and + shortness of breath. CV: Negative chest pain, difficulty breathing, palpitations. ABD: Negative pain, nausea, vomiting. : Negative increase frequency, dysuria, blood in urine or stool. MUSC: Negative for muscle aches, edema. SKIN: Negative rash, lesions/sores. NEURO: Negative headache, dizziness, weakness. Physical Exam Physical Exam: GENERAL APPEARANCE NAD, activity normal for age, well developed/ well nourished, no cyanosis, pallor, or diaphoresis. EYES lids/conjunctiva normal. EARS/NOSE/THROAT Mucous membranes moist, nares normal, lips/teeth normal uvula midline without oral pharyngeal erythema, exudate or swelling TMs normal bilaterally. No lymphangitis/lymphedema. HEAD/NECK normocephalic atraumatic, no facial trauma, neck is supple. RESPIRATORY respiratory effort normal, speaks in full sentences, no tripod position, no accessory muscle use. Lungs clear to auscultation without rhonchi, wheezes, rales CARDIAC Regular rate and rhythm, no edema. ABDOMINAL Soft, ND/NT. No evidence of fluid wave. No pulsatile masses on exam, rebound tenderness, Hancock sign or pain over Mcburney's point. MUSCLES/EXTREMITIES No abnormal range of motion, no swelling. SKIN Warm, pink and dry. No rashes, dermatoses, petechiae or lesions. NEUROLOGICAL Speech is clear and appropriate. Normal level of consciousness. Gait and coordination are normal. 5/5 strength in all extremities. PSYCH Normal mood and affect. Judgement/competence is appropriate Results & Data Results & Data Vital Signs (Past 12 Hours) Vital Signs Temp Pulse Pulse Resp BP Pulse Ox O2 Del Method 12/20/24 07:50 36.6 C 85 17 116/78 97 Nasal Cannula 12/20/24 03:41 36.5 C 93 H 20 124/79 95 Nasal Cannula 12/19/24 23:39 36.5 C 95 H 20 109/67 95 Nasal Cannula O2 Flow Rate 12/20/24 07:50 2 12/20/24 03:41 2 12/19/24 23:39 2 PG Care Time/CCT Total # of Minutes Spent Total Time Spent with Patient: Total time spent is greater than 50% in coordination of care (as documented) at patient's floor/unit and/or counseling patient: Coding Level of Care Code 29485 SUB INP/OBS CARE 2/35MIN Diagnoses Recurrent left pleural effusion J90 Type 2 diabetes mellitus E11.9 Diabetes mellitus intermediate project manager insulin use: without snf use Renal cell carcinoma of left kidney metastatic to other site C64.2 Laterality: left (2) Type 2 diabetes mellitus Diabetes mellitus snf insulin use: without intermediate project manager use (3) Metastatic renal cell carcinoma Laterality: left Qualified Code(s): C64.2 - Malignant neoplasm of left kidney, except renal pelvis
[2024-12-20] MEDS ORDERED: PHARMACY GLYCEMIC MGMT CONSULT PRN (15:06)
--- NOTE | 2024-12-20 15:29 | Pharmacy Report ---
Pharmacy Glycemic Short Note 2 - Date of Service December 20, 2024 - Glycemic Short BSG Results (Last 24 hours): 12/19/24 12/19/24 12/20/24 16:14 20:51 06:42 Glucose 290 H 165 H POC Glucose 128 H 12/20/24 12/20/24 12/20/24 08:16 10:07 11:46 Glucose POC Glucose 172 H 337 H* 309 H* OUTPATIENT ANTIDIABETIC REGIMEN: * Lantus 11 units SQ daily * NovoLog 7 units SQ TID * HbA1c pending (12/20/24) 6.9% (09/02/24) ASSESSMENT: * Gerry is a 74 year old male admitted with dyspnea and a history of type 2 diabetes mellitus. Pharmacy has been consulted to assist with glycemic management while inpatient. * Fasting BSG this AM acceptable, will continue current basal regimen. * BSGs climbed at lunchtime, suggestive of insufficient carbohydrate coverage, will tighten NovoLog to about a weight based stress of 2. No glycemic stressors noted. PLAN FOR INPATIENT GLYCEMIC CONTROL: * Hold outpatient oral diabetes medications * Basal insulin * Lantus 11 units SQ daily * Bolus insulin * NovoLog per scale ACHS or Q6hrs while NPO * Goal Range: Low 120 mg/dL - High 160 mg/dL * Correction Factor: 30 mg/dL/unit * Nutritional / Prandial insulin per carb ratio of 1 unit per 10 grams CHO consumed
--- NOTE | 2024-12-20 15:59 | Procedure Note ---
Procedure Note Date of Service December 20, 2024 Procedure: Diagnostic therapeutic ultrasound-guided catheter thoracentesis Hall Worker: Dr. Nikki Loomis Indication: Pleural effusion Consent: Signed by patient and verified with timeout prior to procedure Anesthesia: 1% lidocaine without epinephrine local. Procedure: Consent was verified and timeout performed. Appropriate imaging studies were reviewed prior to the procedure. Patient was placed in a seated position and limited thoracic ultrasound was performed of the left chest. Appropriate site above the diaphragm for thoracentesis was selected. The skin was prepped and draped in normal sterile fashion. Lidocaine was used for local analgesia. Fluid was aspirated via the finder needle. A small skin zeenat was made with the scalpel and the catheter over the needle apparatus was advanced over the rib into the pleural space. Using the syringe one-way valve system, a total of 1500 mL's of serosanguineous colored fluid was removed. Procedure was terminated due to coughing and chest discomfort. The catheter was removed and observed to be intact. A sterile dressing was applied. Post procedure chest x-ray was ordered. Fluid was sent for labs, culture and cytology. Complications: None Blood loss: Less than 1 mL [facility] Procedure Codes (Charges) Pulmonary/Thoracic Procedure 1: Pulmonary and Thoracic: 43975 Thoracentesis w/o imaging Coding CPT Codes Pulmonary/Thoracic - Pulmonary and Thoracic: 54884 Thoracentesis w/o imaging ([id number]) Additional Codes Date of Service ([facility].SURGERY)
--- NOTE | 2024-12-20 16:11 | XRay Report ---
Technique: A frontal view of the chest was obtained Comparison is made to the prior examination dated 12/19/2024 Findings: There is a slightly decreased large left pleural effusion with associated left mid and lower lung atelectasis. There is left upper lobe atelectasis as well. Concurrent left lung pneumonia cannot be saluted. The heart is enlarged. No right pleural effusion or pneumothorax is seen. There is a right chest wall port with its tip in the SVC. No fracture is noted. No foreign body is seen Impression: 1. Large left pleural effusion with associated left lung atelectasis 2. Cardiomegaly ACT 112: Positive. There are findings on this exam that require communication between the performing entity and the patient following Patient Test Result Information Act ([place] ACT 112) guidelines. Electronically signed by Kilo Pagan 12-20-2024 4:11 PM
[2024-12-20 16:54] LABS: Appearance Pleural Fluid Hazy; Color Pleural Fluid Red; RBC Pleural Fluid Auto 72000 /uL; Source Pleural Fluid Left Lung; WBC Pleural Fluid Auto 123 /uL
[2024-12-20 17:27] LABS: Albumin Level 3.1 gm/dl (3.4-5.0); Bilirubin,Total 0.4 mg/dl (0.2-1.0); Total Protein 6.3 gm/dl (6.0-8.3)
[2024-12-21] MEDS: LEVOTHYROXINE SODIUM 25 MCG TABLET PO SCH (06:02)
[2024-12-21] MEDS ORDERED: ONDANSETRON 8MG OD TAB PO SCH (06:30)
[2024-12-21] MEDS: ONDANSETRON 8MG OD TAB PO SCH (06:32)
[2024-12-21 07:24] LABS: Hematocrit (blood only) 32.8 % (42.0-52.0); Hemoglobin 10.9 g/dl (14.0-18.0); Mean Corpuscular Hemoglobin 27.3 pg (25.0-34.0); Mean Corpuscular Volume 82.0 fL (80.0-100.0); Platelet Count 230 K/uL (130-400); RDW Standard Deviation 50.1 fL (36.4-46.3); Red Blood Count 4.00 M/uL (4.70-6.10); White Blood Count 7.75 K/ul (4.8-10.8)
[2024-12-21] MEDS: LENVATINIB MESYLATE 10 MG PO SCH (07:34)
[2024-12-21] MEDS: POLYETHYLENE (MIRALAX) 17 GM PACK ONE (07:43)
[2024-12-21] MEDS: POLYETHYLENE (MIRALAX) 17 GM PACK PO SCH (07:45)
[2024-12-21 07:48] LABS: Anion Gap 9.0 (3-11); Blood Urea Nitrogen 26.0 mg/dl (6-23); Calcium 9.0 mg/dl (8.6-10.3); Carbon Dioxide 28.0 mmol/L (21-32); Chloride 98.0 mmol/L (98-107); Creatinine Clr Calc Pharmacy 59.9 ml/min; Glucose 168.0 mg/dl (70-99(Fasting)); Potassium 3.8 mmol/L (3.5-5.1); Sodium 135.0 mmol/L (136-145)
[2024-12-21 07:58] LABS: Hemoglobin A1C 7.3 % (4.5-5.6)
[2024-12-21] MEDS ORDERED: LENVATINIB MESYLATE 10 MG PO SCH (08:00)
--- NOTE | 2024-12-21 09:18 | Hospitalist Progress Note ---
Date of Service December 21, 2024 Assessment & Plan (1) Recurrent left pleural effusion: Plan: -CXR shows near-total opacification of the left hemithorax favoring a large pleural effusion -h/o renal cell CA with mets to the lung -recent thoarcentesis last Wednesday with 2L fluid+ for mets -s/p thoracentesis 12/20 with 1.5L removed -pulmonary consult appreciated -trey prn -2 step home 02 ordered -Follow up pulmonary recommendations for possible d/c (2) Type 2 diabetes mellitus: Plan: -Pharm consulted for glycemic managment (3) Metastatic renal cell carcinoma: Plan: -follow with Dr. Pierce -receiving chemo/immunotherapy -Know mets ot left ribs, spine and femur Admission and Anticipated Discharge Date Admission Date: December 19, 2024 Review of Systems Review of Systems: CONST: Negative for fever, body aches and chills. HENT: Negative for neck pain/stiffness, headache, congestion, sore throat, swelling. EYES: Negative for discharge/pain or vision changes. RESP: Negative for cough/hemoptysis and + shortness of breath. CV: Negative chest pain, difficulty breathing, palpitations. ABD: Negative pain, nausea, vomiting. : Negative increase frequency, dysuria, blood in urine or stool. MUSC: Negative for muscle aches, edema. SKIN: Negative rash, lesions/sores. NEURO: Negative headache, dizziness, weakness. Physical Exam Physical Exam: GENERAL APPEARANCE NAD, activity normal for age, well developed/ well nourished, no cyanosis, pallor, or diaphoresis. EYES lids/conjunctiva normal. EARS/NOSE/THROAT Mucous membranes moist, nares normal, lips/teeth normal uvula midline without oral pharyngeal erythema, exudate or swelling TMs normal bilaterally. No lymphangitis/lymphedema. HEAD/NECK normocephalic atraumatic, no facial trauma, neck is supple. RESPIRATORY respiratory effort normal, speaks in full sentences, no tripod position, no accessory muscle use. Lungs clear to auscultation without rhonchi, wheezes, rales CARDIAC Regular rate and rhythm, no edema. ABDOMINAL Soft, ND/NT. No evidence of fluid wave. No pulsatile masses on exam, rebound tenderness, Hancock sign or pain over Mcburney's point. MUSCLES/EXTREMITIES No abnormal range of motion, no swelling. SKIN Warm, pink and dry. No rashes, dermatoses, petechiae or lesions. NEUROLOGICAL Speech is clear and appropriate. Normal level of consciousness. Gait and coordination are normal. 5/5 strength in all extremities. PSYCH Normal mood and affect. Judgement/competence is appropriate Results & Data Results & Data Vital Signs (Past 12 Hours) Vital Signs Temp Pulse Pulse Resp BP Pulse Ox O2 Del Method 12/21/24 08:35 36.4 C L 92 H 18 117/70 97 Nasal Cannula 12/21/24 03:49 36.4 C L 89 20 107/68 94 Nasal Cannula 12/21/24 00:19 36.6 C 81 20 103/67 97 Nasal Cannula 12/20/24 21:57 99 H O2 Flow Rate 12/21/24 08:35 2 12/21/24 03:49 2 12/21/24 00:19 2 12/20/24 21:57 PG Care Time/CCT Total # of Minutes Spent Total Time Spent with Patient: Total time spent is greater than 50% in coordination of care (as documented) at patient's floor/unit and/or counseling patient: Coding Level of Care Code 83402 SUB INP/OBS CARE 2/35MIN Diagnoses Recurrent left pleural effusion J90 Type 2 diabetes mellitus E11.9 Diabetes mellitus buttermaker insulin use: without buttermaker use Renal cell carcinoma of left kidney metastatic to other site C64.2 Laterality: left (2) Type 2 diabetes mellitus Diabetes mellitus long-term insulin use: without long-term use (3) Metastatic renal cell carcinoma Laterality: left Qualified Code(s): C64.2 - Malignant neoplasm of left kidney, except renal pelvis
[2024-12-21 09:57] LABS: Basophils, Fluid 2 %; Eosinophils, Fluid 3 %; Lymphocytes, Fluid 31 %; Mono,Macrophage,Mesothelial 39 %; Neutrophils, Fluid 25 %
--- NOTE | 2024-12-21 10:48 | XRay Report ---
XR chest 1V portable CLINICAL HISTORY: f/u COMPARISON STUDY: 12/20/2024 FINDINGS: Stable chest port. Stable cardiomegaly without pulmonary vascular congestion. Stable large left pleural effusion and associated consolidation at the left mid and lower lung. No pneumothorax. IMPRESSION: Stable exam. ACT 112: Negative or not required by law. Electronically signed by: Dawood Tirado M.D. 12/21/2024 10:47 AM
--- NOTE | 2024-12-21 11:59 | Pulmonology Progress Note ---
Date of Service December 21, 2024 Assessment & Plan (1) Metastatic renal cell carcinoma: Laterality: left Qualified Code(s): C64.2 - Malignant neoplasm of left kidney, except renal pelvis (2) Malignant pleural effusion: (3) Acute hypoxemic respiratory failure: Plan Patient underwent thoracentesis 12/20/2024. 1.5 L of serosanguineous fluid was removed. Patient had some improvement in his breathing after this however x-ray showing that fluid is building back up again already. Given the rapidity of his fluid accumulation and the underlying diagnosis of malignant effusion with metastatic renal cell carcinoma the patient is a candidate for PleurX catheter. I discussed this in detail with him. He is agreeable to have this procedure done. We will plan to proceed with PleurX catheter tomorrow. Please keep n.p.o. after midnight. Thank you for this consult. I will follow with you. Admission and Anticipated Discharge Date Admission Date: December 19, 2024 Subjective Patient is doing well today. Shortness of breath improved after thoracentesis yesterday. Chest x-ray shows he is already reaccumulating fluid however. I discussed the option for PleurX again and patient discussed it with his . He is agreeable for PleurX catheter placement. Review of Systems Review of Systems: A 12 point review of systems was obtained in detail. Negative except as noted in HPI. Physical Exam Physical Exam: Physical examination: General: Well-appearing, well-nourished and not in acute distress. HEENT: Normocephalic, atraumatic. Extraocular movements intact. Sclera are nonicteric. No JVD appreciated. Skin: Warm and dry. No rashes appreciated. No jaundice appreciated. Cardiovascular: Heart is a regular rate and rhythm, no murmurs appreciated on my exam. No significant lower extremity edema. Lungs: Clear on the right, absent breath sounds appreciated on the left. Musculoskeletal: Normal muscle mass and tone. No gross joint deformity abnormalities. No effusions appreciated. Neurologic: Awake and alert, oriented. CN II through XII are grossly intact. Speech is fluent. Nonfocal exam. Psychiatric: Appropriate cooperative during my exam. Results & Data Results & Data Vital Signs (Past 12 Hours) Vital Signs Temp Pulse Resp BP Pulse Ox O2 Del Method O2 Flow Rate 12/21/24 11:39 36.7 C 80 18 119/66 96 Room Air 12/21/24 08:35 36.4 C L 92 H 18 117/70 97 Nasal Cannula 2 12/21/24 03:49 36.4 C L 89 20 107/68 94 Nasal Cannula 2 12/21/24 00:19 36.6 C 81 20 103/67 97 Nasal Cannula 2 PG Care Time/CCT Total # of Minutes Spent Total Time Spent with Patient: Total time spent is greater than 50% in coordination of care (as documented) at patient's floor/unit and/or counseling patient: Coding Level of Care Code 28308 SUB INP/OBS CARE 235MIN Diagnoses Renal cell carcinoma of left kidney metastatic to other site C64.2 Laterality: left Malignant pleural effusion J91.0 Acute hypoxemic respiratory failure J96.01
--- NOTE | 2024-12-22 06:47 | Pulmonology Progress Note ---
Date of Service December 22, 2024 Assessment & Plan (1) Metastatic renal cell carcinoma: Laterality: left Qualified Code(s): C64.2 - Malignant neoplasm of left kidney, except renal pelvis (2) Malignant pleural effusion: (3) Acute hypoxemic respiratory failure: Plan Patient underwent thoracentesis 12/20/2024. 1.5 L of serosanguineous fluid was removed. Pleural fluid has elevated LDH and protein however Gram stain is negative , Glucose is normal, only 25% neutrophils, 31% lymphocytes. It is exudative by lights criteria however this can also be seen in malignant effusions. Previous thoracentesis done on 12/13/2024 was positive for malignant cells. No malignant cells seen on our path review from most recent thoracentesis on 12/20/2024. Given the rapidity of his fluid accumulation and the underlying diagnosis of malignant effusion with metastatic renal cell carcinoma the patient is a candidate for PleurX catheter. I discussed this in detail with him. He is agreeable to have this procedure done. Patient is not on antiplatelets or anticoagulation. Will proceed with PleurX catheter placement this morning. Will obtain chest x-ray after catheter is inserted. Will drain effusion after procedure. Patient can drain his PleurX daily but should not drain more than 1 bottle a day. He will need case management/social work and home health, he will need bottles sent home with him and supplies ordered for home. He will need to follow-up in clinic. Patient is scheduled for 1:30 PM on 01/02/2025 to see me in clinic. Thank you for this consult. I will follow with you. Admission and Anticipated Discharge Date Admission Date: December 19, 2024 Subjective Patient was examined prior to PleurX catheter insertion this morning. He is feeling okay. Still having dyspnea and difficulty lying flat. No significant chest discomfort after thoracentesis yesterday. Anxious about PleurX but still wanting to go through with the procedure. Review of Systems Review of Systems: A 12 point review of systems was obtained in detail. Negative except as noted in HPI. Physical Exam Physical Exam: Physical examination: General: Well-appearing, well-nourished and not in acute distress. HEENT: Normocephalic, atraumatic. Extraocular movements intact. Sclera are nonicteric. No JVD appreciated. Skin: Warm and dry. No rashes appreciated. No jaundice appreciated. Cardiovascular: Heart is a regular rate and rhythm, no murmurs appreciated on my exam. No significant lower extremity edema. Lungs: Clear on the right, absent breath sounds appreciated on the left. Musculoskeletal: Normal muscle mass and tone. No gross joint deformity abnormalities. No effusions appreciated. Neurologic: Awake and alert, oriented. CN II through XII are grossly intact. Speech is fluent. Nonfocal exam. Psychiatric: Appropriate cooperative during my exam. Results & Data Results & Data Vital Signs (Past 12 Hours) Vital Signs Temp Pulse Pulse Resp BP Pulse Ox O2 Del Method 12/22/24 01:25 36.6 C 95 H 18 111/70 91 Room Air 12/21/24 23:09 36.6 C 89 18 105/66 92 Room Air 12/21/24 22:14 89 12/21/24 20:00 Room Air 12/21/24 19:37 36.7 C 94 H 19 123/76 92 Room Air PG Care Time/CCT Total # of Minutes Spent Total Time Spent with Patient: Total time spent is greater than 50% in coordination of care (as documented) at patient's floor/unit and/or counseling patient: Coding Level of Care Code 74056 SUB INP/OBS CARE 2/35MIN Diagnoses Renal cell carcinoma of left kidney metastatic to other site C64.2 Laterality: left Malignant pleural effusion J91.0 Acute hypoxemic respiratory failure J96.01
[2024-12-22 07:52] LABS: Hematocrit (blood only) 31.0 % (42.0-52.0); Hemoglobin 10.0 g/dl (14.0-18.0); Mean Corpuscular Hemoglobin 26.3 pg (25.0-34.0); Mean Corpuscular Volume 81.6 fL (80.0-100.0); Platelet Count 194 K/uL (130-400); RDW Standard Deviation 49.5 fL (36.4-46.3); Red Blood Count 3.80 M/uL (4.70-6.10); White Blood Count 5.28 K/ul (4.8-10.8)
[2024-12-22] MEDS: LIDOCAINE 1% LOCAL 20 ML VIAL ONE (08:05)
[2024-12-22] MEDS: MoRPHine SULFATE 10 MG/ML CARP/VIAL ONE (08:05)
[2024-12-22 08:13] LABS: Anion Gap 9.0 (3-11); Blood Urea Nitrogen 27.0 mg/dl (6-23); Calcium 8.8 mg/dl (8.6-10.3); Carbon Dioxide 27.0 mmol/L (21-32); Chloride 100.0 mmol/L (98-107); Creatinine Clr Calc Pharmacy 54.4 ml/min; Glucose 101.0 mg/dl (70-99(Fasting)); Potassium 3.9 mmol/L (3.5-5.1); Sodium 136.0 mmol/L (136-145)
--- NOTE | 2024-12-22 08:23 | Procedure Note ---
Procedure Note Date of Service December 22, 2024 PREOPERATIVE DIAGNOSIS: Recurrent left pleural effusion. POSTOPERATIVE DIAGNOSIS: Recurrent malignant left pleural effusion. PROCEDURE PERFORMED: Left PleurX Catheter Placement ANESTHESIA: Local 1% Lidocaine without Epinephrine, 4 mg morphine administered IV COMPLICATIONS: None. INDICATION FOR PROCEDURE: Malignant pleural effusion, dyspnea, hypoxia, recurrent effusion DESCRIPTION OF PROCEDURE: The patient was placed in a semirecumbent position. I evaluated the left pleura with the ultrasound and located an adequate spot above the diaphragm. The left chest and upper abdomen were prepped and draped in the usual sterile fashion. Lidocaine 1% was used to infiltrate two areas; one in the left upper quadrant where the tube would exit and the other along the anterior axillary line one intercostal space below. A small counterincision was made in the left upper quadrant area. Through the anterior axillary line area, the pleural space was accessed by Seldinger technique. The counterincision was made around the guidewire and then the PleurX catheter was tunneled from the right upper quadrant small incision to the one overlying the ribs. A sheath introducer was then passed over the wire and then the PleurX catheter was placed through the sheath introducer. There was good return of fluid. 1000 ml of serosanguineous fluid was withdrawn slowly as the small counterincision was closed with Monocryl stitch. The catheter was capped off, and sterile dressings were applied. The patient tolerated the procedure well without any complications. Chest Xray to follow. Complications: None Blood Loss: < 3cc [facility] Procedure Codes (Charges) Pulmonary/Thoracic Procedure 1: Pulmonary and Thoracic: 50567 Insert pleural cathereter w/cuff Coding CPT Codes Pulmonary/Thoracic - Pulmonary and Thoracic: 24555 Insert pleural cathereter w/cuff ([id number]) Additional Codes Date of Service (PG.SURGERY)
--- NOTE | 2024-12-22 09:20 | XRay Report ---
XR chest 1V portable CLINICAL HISTORY: s/p pleurX insertion COMPARISON STUDY: 12/21/2024 FINDINGS: There is interval pleural catheter at the left base. There is a large left pleural effusion and associated consolidation at the left mid and lower lung. No significant pneumothorax seen. Right lung remains well aerated. Stable right chest port. IMPRESSION: Large left pleural effusion and associated pulmonary consolidation. ACT 112: Negative or not required by law. Electronically signed by: Dawood Tirado M.D. 12/22/2024 9:19 AM
--- NOTE | 2024-12-22 09:57 | Hospitalist Progress Note ---
Date of Service December 22, 2024 Assessment & Plan (1) Recurrent left pleural effusion: Plan: -CXR shows near-total opacification of the left hemithorax favoring a large pleural effusion -h/o renal cell CA with mets to the lung -recent thoracentesis last Wednesday with 2L fluid+ for mets -s/p thoracentesis 12/20 with 1.5L removed -pulmonary consult appreciated -trey prn -2 step home 02 ordered -Pleurx cath placed -home-care nursing arranged with case-management (2) Type 2 diabetes mellitus: Plan: -Pharm consulted for glycemic managment (3) Metastatic renal cell carcinoma: Plan: -follow with Dr. Pierce -receiving chemo/immunotherapy -Know mets ot left ribs, spine and femur Plan D/C planning for 12/23 Admission and Anticipated Discharge Date Admission Date: December 19, 2024 Subjective Pt had Pleurx cath placed this am. Review of Systems Review of Systems: CONST: Negative for fever, body aches and chills. HENT: Negative for neck pain/stiffness, headache, congestion, sore throat, swelling. EYES: Negative for discharge/pain or vision changes. RESP: Negative for cough/hemoptysis and + shortness of breath. CV: Negative chest pain, difficulty breathing, palpitations. ABD: Negative pain, nausea, vomiting. : Negative increase frequency, dysuria, blood in urine or stool. MUSC: Negative for muscle aches, edema. SKIN: Negative rash, lesions/sores. NEURO: Negative headache, dizziness, weakness. Physical Exam Physical Exam: GENERAL APPEARANCE NAD, activity normal for age, well developed/ well nourished, no cyanosis, pallor, or diaphoresis. EYES lids/conjunctiva normal. EARS/NOSE/THROAT Mucous membranes moist, nares normal, lips/teeth normal uvula midline without oral pharyngeal erythema, exudate or swelling TMs normal bilaterally. No lymphangitis/lymphedema. HEAD/NECK normocephalic atraumatic, no facial trauma, neck is supple. RESPIRATORY respiratory effort normal, speaks in full sentences, no tripod position, no accessory muscle use. Lungs clear to auscultation without rhonchi, wheezes, rales CARDIAC Regular rate and rhythm, no edema. ABDOMINAL Soft, ND/NT. No evidence of fluid wave. No pulsatile masses on exam, rebound tenderness, Hancock sign or pain over Mcburney's point. MUSCLES/EXTREMITIES No abnormal range of motion, no swelling. SKIN Warm, pink and dry. No rashes, dermatoses, petechiae or lesions. NEUROLOGICAL Speech is clear and appropriate. Normal level of consciousness. Gait and coordination are normal. 5/5 strength in all extremities. PSYCH Normal mood and affect. Judgement/competence is appropriate Results & Data Results & Data Vital Signs (Past 12 Hours) Vital Signs Temp Pulse Pulse Resp BP BP Pulse Ox 12/22/24 08:00 100 H 141/80 H 96 12/22/24 07:55 36.6 C 109 H 20 135/82 93 12/22/24 07:49 160/101 H 12/22/24 07:47 100 H 18 156/79 H 97 12/22/24 07:46 98 H 12/22/24 07:29 100 H 18 156/79 H 96 12/22/24 01:25 36.6 C 95 H 18 111/70 91 12/21/24 23:09 36.6 C 89 18 105/66 92 12/21/24 22:14 89 O2 Del Method O2 Flow Rate 12/22/24 08:00 Nasal Cannula 4 12/22/24 07:55 Room Air 12/22/24 07:49 12/22/24 07:47 Nasal Cannula 4 12/22/24 07:46 12/22/24 07:29 Nasal Cannula 4 12/22/24 01:25 Room Air 12/21/24 23:09 Room Air 12/21/24 22:14 PG Care Time/CCT Total # of Minutes Spent Total Time Spent with Patient: Total time spent is greater than 50% in coordination of care (as documented) at patient's floor/unit and/or counseling patient: Coding Level of Care Code 69770 SUB INP/OBS CARE 2/35MIN Diagnoses Recurrent left pleural effusion J90 Type 2 diabetes mellitus E11.9 Diabetes mellitus drilling supervisor insulin use: without drilling supervisor use Renal cell carcinoma of left kidney metastatic to other site C64.2 Laterality: left (2) Type 2 diabetes mellitus Diabetes mellitus chcf insulin use: without chcf use (3) Metastatic renal cell carcinoma Laterality: left Qualified Code(s): C64.2 - Malignant neoplasm of left kidney, except renal pelvis
[2024-12-22] MEDS ORDERED: LANTUS PER UNIT CHARGE SC ONE (12:30)
[2024-12-22] MEDS: LANTUS PER UNIT CHARGE SC ONE (12:50)
--- NOTE | 2024-12-22 14:41 | Pharmacy Report ---
Pharmacy Glycemic Short Note 2 - Date of Service December 22, 2024 - Glycemic Short BSG Results (Last 24 hours): 12/21/24 12/21/24 12/22/24 17:06 20:07 07:02 Glucose 101 H POC Glucose 98 170 H 12/22/24 12/22/24 08:39 12:14 Glucose POC Glucose 98 188 H OUTPATIENT ANTIDIABETIC REGIMEN: * Lantus 11 units SQ daily * NovoLog 7 units SQ TID * HbA1c pending (12/20/24) 6.9% (09/02/24) ASSESSMENT: 12/22 * Patient received total of 34 units of insulin yesterday, of which 11 units were basal * NPO this AM, held AM basal - however diet restarted and reordered basal at lunch time * No change to CF/CR 12/20 * Gerry is a 74 year old male admitted with dyspnea and a history of type 2 diabetes mellitus. Pharmacy has been consulted to assist with glycemic management while inpatient. * Fasting BSG this AM acceptable, will continue current basal regimen. * BSGs climbed at lunchtime, suggestive of insufficient carbohydrate coverage, will tighten NovoLog to about a weight based stress of 2. No glycemic stressors noted. PLAN FOR INPATIENT GLYCEMIC CONTROL: * Hold outpatient oral diabetes medications * Basal insulin * Lantus 11 units SQ daily * Bolus insulin * NovoLog per scale ACHS or Q6hrs while NPO * Goal Range: Low 120 mg/dL - High 160 mg/dL * Correction Factor: 30 mg/dL/unit * Nutritional / Prandial insulin per carb ratio of 1 unit per 10 grams CHO consumed
--- NOTE | 2024-12-23 07:52 | Pulmonology Progress Note ---
Date of Service December 23, 2024 Assessment & Plan (1) Metastatic renal cell carcinoma: Laterality: left Qualified Code(s): C64.2 - Malignant neoplasm of left kidney, except renal pelvis (2) Malignant pleural effusion: (3) Acute hypoxemic respiratory failure: Plan Patient is a 74-year-old male with known metastatic clear-cell renal cancer diagnosed in 2009 with left lower lobe metastatic pulmonary lesion and history of left upper lobe mass. Patient underwent thoracentesis 12/20/2024. 1.5 L of serosanguineous fluid was removed. Pleural fluid has elevated LDH and protein however Gram stain is negative , Glucose is normal, only 25% neutrophils, 31% lymphocytes. It is exudative by lights criteria however this can also be seen in malignant effusions. Previous thoracentesis done on 12/13/2024 at [facility] with 2 L off, LDH 360, protein 4.7, glucose 207. Atypical cells were seen on this fluid. Cultures were negative. No malignant cells seen on our path review from most recent thoracentesis on 12/20/2024. Given the rapidity of his fluid accumulation and the underlying diagnosis of malignant effusion with metastatic renal cell carcinoma the patient is a candidate for PleurX catheter. Status post PleurX catheter insertion 12/22/2024. Removed an additional liter after catheter insertion. Post procedure x-ray shows decrease in size of pleural effusion and good placement of catheter. An additional 1 L was drained this morning. Chest x-ray shows decrease in size of pleural effusion. Patient can drain his PleurX daily but should not drain more than 1 bottle a day. He will need case management/social work and home health, he will need bottles sent home with him and supplies ordered for home. He will need to follow-up in clinic. Patient is scheduled for 1:30 PM on 01/02/2025 to see me in clinic. Will need an x-ray prior to his appointment. Thank you for this consult. I will sign off and follow-up in the outpatient setting. Please call with any questions. Admission and Anticipated Discharge Date Admission Date: December 19, 2024 Subjective Patient is doing well today. He has been on room air since yesterday evening. Still having some chest discomfort at chest tube insertion site. I examined his chest tube insertion site, clean and dry, no erythema or edema. I drained 900 cc this morning from his PleurX catheter. Review of Systems Review of Systems: A 12 point review of systems was obtained in detail. Negative except as noted in HPI. Physical Exam Physical Exam: Physical examination: General: Well-appearing, well-nourished and not in acute distress. HEENT: Normocephalic, atraumatic. Extraocular movements intact. Sclera are nonicteric. No JVD appreciated. Skin: Warm and dry. No rashes appreciated. No jaundice appreciated. Cardiovascular: Heart is a regular rate and rhythm, no murmurs appreciated on my exam. No significant lower extremity edema. Lungs: Clear on the right, absent breath sounds appreciated on the left base. PleurX catheter in place. Drained well this morning. Musculoskeletal: Normal muscle mass and tone. No gross joint deformity abnormalities. No effusions appreciated. Neurologic: Awake and alert, oriented. CN II through XII are grossly intact. Speech is fluent. Nonfocal exam. Psychiatric: Appropriate cooperative during my exam. Results & Data Results & Data Vital Signs (Past 12 Hours) Vital Signs Temp Pulse Pulse Resp BP Pulse Ox O2 Del Method 12/23/24 02:52 36.6 C 98 H 18 143/81 H 94 Room Air 12/22/24 22:08 36.6 C 92 H 18 114/72 93 Room Air 12/22/24 21:54 91 H 12/22/24 20:00 Room Air PG Care Time/CCT Total # of Minutes Spent Total Time Spent with Patient: Total time spent is greater than 50% in coordination of care (as documented) at patient's floor/unit and/or counseling patient: Coding Level of Care Code 07316 SUB INP/OBS CARE 2/35MIN Diagnoses Renal cell carcinoma of left kidney metastatic to other site C64.2 Laterality: left Malignant pleural effusion J91.0 Acute hypoxemic respiratory failure J96.01
[2024-12-23 07:56] LABS: Hematocrit (blood only) 32.2 % (42.0-52.0); Hemoglobin 10.6 g/dl (14.0-18.0); Mean Corpuscular Hemoglobin 26.8 pg (25.0-34.0); Mean Corpuscular Volume 81.5 fL (80.0-100.0); Platelet Count 201 K/uL (130-400); RDW Standard Deviation 49.0 fL (36.4-46.3); Red Blood Count 3.95 M/uL (4.70-6.10); White Blood Count 5.12 K/ul (4.8-10.8)
[2024-12-23 08:12] LABS: Anion Gap 8.0 (3-11); Blood Urea Nitrogen 25.0 mg/dl (6-23); Calcium 8.6 mg/dl (8.6-10.3); Carbon Dioxide 27.0 mmol/L (21-32); Chloride 101.0 mmol/L (98-107); Creatinine Clr Calc Pharmacy 57.2 ml/min; Glucose 98.0 mg/dl (70-99(Fasting)); Potassium 4.1 mmol/L (3.5-5.1); Sodium 136.0 mmol/L (136-145)
--- NOTE | 2024-12-23 10:56 | Discharge Summary ---
Discharge Summary Date of Service December 23, 2024 Principal Dx & Hospital Course #1 = Principal Diagnosis (1) Recurrent left pleural effusion: -CXR shows near-total opacification of the left hemithorax favoring a large pleural effusion -h/o renal cell CA with mets to the lung -recent thoracentesis last Wednesday with 2L fluid+ for mets -s/p thoracentesis 12/20 with 1.5L removed -pulmonary consult appreciated -trey rochan -2 step home 02 ordered -Pleurx cath placed -home-care nursing arranged with case-management (2) Type 2 diabetes mellitus: -Pharm consulted for glycemic managment (3) Metastatic renal cell carcinoma: -follow with Dr. Pierce -receiving chemo/immunotherapy -Know mets ot left ribs, spine and femur Plan D/C planning for 12/23 Admission HPI Per Admitting Provider Pt is a 74 y/o male with pmh of renal cell CA with mets, DM, who presents from PMD's office after he was noted to have 02 sats of 86%. Pt had large left pleural effusion s/p 2L thoracentesis last [place] [facility] The results of the pleural fluid were positive for renal cell CA. In the ER his CXR shows near- total opacification of the left hemithorax favoring a large pleural effusion. Pt is being admitted for further pulmonary evaluation and repeat thoracentesis. Discharge Exam GENERAL APPEARANCE NAD, activity normal for age, well developed/ well nourished, no cyanosis, pallor, or diaphoresis. EYES lids/conjunctiva normal. EARS/NOSE/THROAT Mucous membranes moist, nares normal, lips/teeth normal uvula midline without oral pharyngeal erythema, exudate or swelling TMs normal bilaterally. No lymphangitis/lymphedema. HEAD/NECK normocephalic atraumatic, no facial trauma, neck is supple. RESPIRATORY respiratory effort normal, speaks in full sentences, no tripod position, no accessory muscle use. Lungs clear to auscultation without rhonchi, wheezes, rales CARDIAC Regular rate and rhythm, no edema. ABDOMINAL Soft, ND/NT. No evidence of fluid wave. No pulsatile masses on exam, rebound tenderness, Hancock sign or pain over Mcburney's point. MUSCLES/EXTREMITIES No abnormal range of motion, no swelling. SKIN Warm, pink and dry. No rashes, dermatoses, petechiae or lesions. NEUROLOGICAL Speech is clear and appropriate. Normal level of consciousness. Gait and coordination are normal. 5/5 strength in all extremities. PSYCH Normal mood and affect. Judgement/competence is appropriate Discharge Plan Discharge Items Patient Disposition: Home - Self-Care Reason For Visit: MALIGNANT PLEURAL EFFUSION Discharge Diagnosis: Malignant pleural effusion Condition on Discharge: Serious Activity: Resume your previous activity Non-emergency contact: Primary Care Provider Call non-emergency contact if: you have any medication questions Follow-up/Referrals: Chantal Saxena DO [Primary Care Provider] - 12/28/24 10:30 am Diet: Regular Addtl Attending Provider Instructions: Follow up with Pulmonary in 1 week Pending Studies at Discharge: No Stand-Alone Forms: My [facility] [employer], Work/School Release, Smoking Cessation Medications and DC Order Prescriptions: Continued (DME) lancets [OneTouch Delica Plus Lancet] 30 gauge misc See Rx Instructions .Route Qty: 100 11RF Rx Instructions: Test fingerstick 3x per day (DME) OneTouch Verio test strips Strip See Rx Instructions .ROUTE .MEDSUPPLY Qty: 100 3RF Rx Instructions: test 1 time daily buprenorphine [Butrans] 10 mcg/hour patch weekly 1 patch transdermal Q7D Rx Instructions: NEW DC [facility] 05/01/24 docusate sodium 100 mg capsule 100 mg PO BID Rx Instructions: NEW DC [facility] 05/01/24 polyethylene glycol 3350 17 gram powder in packet 17 g PO DAILY (DME) Dexcom G7 Sensor Device See Rx Instructions .Route Qty: 1 0RF Rx Instructions: As directed- RX'd Stefania Cuello hydromorphone 4 mg tablet 4 mg PO Q4H PRN (Reason: Pain) Rx Instructions: NEW DC [facility] 05/01/24 insulin aspart U-100 [Novolog FlexPen U-100 Insulin] 100 unit/mL (3 mL) insulin pen 7 unit subcut TID Qty: 60 3RF baclofen 5 mg tablet 2.5 mg PO BID Rx Instructions: reduced to 2.5mg BID.--- DC [facility] 05/01/24 gabapentin 100 mg capsule 100 mg PO TID Rx Instructions: reduced to 100mg TID. -----DC [facility] 05/01/24 clotrimazole-betamethasone 1-0.05 % cream 1 applic topical BID Qty: 45 0RF (DME) pen needle, diabetic 32 gauge x 5/32" needle See Rx Instructions miscellaneous .MEDSUPPLY Qty: 200 5RF Rx Instructions: to use 4 per day with insulin pen (DME) pen needle, diabetic [Elyse 2nd Gen Pen Needle] 32 gauge x 5/32" needle See Rx Instructions .Route Qty: 400 3RF Rx Instructions: Inject Insulin 4 times daily insulin glargine [Lantus Solostar U-100 Insulin] 100 unit/mL (3 mL) insulin pen 11 unit subcut DAILY Qty: 30 3RF Rx Instructions: DC [facility] 05/01/24- reduced to 11units daily loratadine [Claritin] 10 mg tablet 10 mg PO QAM (DME) blood-glucose meter [Jun Groupuch Verio Reflect Meter] Misc See Rx Instructions .ROUTE .MEDSUPPLY Qty: 1 0RF Rx Instructions: Test fingerstick 3x per day Baqsimi 3 mg/actuation spray,non-aerosol 3 mg intranasal ONCE PRN (Reason: severe hypoglycemia (unconscious)) Qty: 2 1RF (DME) Ketostix Strip See Rx Instructions miscellaneous .MEDSUPPLY Qty: 25 2RF Rx Instructions: Check if BG >250 for more than 4 hours tizanidine 4 mg tablet 4 mg PO BID PRN (Reason: muscle spasticity) Qty: 30 1RF Rx Instructions: PT NOT SURE ondansetron HCl 4 mg tablet 4 mg PO Q6H PRN (Reason: n/v) Rx Instructions: Nausea-patient not sure if he is taking this after DC GL 05/01/2024 (DME) insulin syringe-needle U-100 [BD Insulin Syringe Ultra-Fine] 0.3 mL 31 gauge x 5/16" syringe See Rx Instructions miscellaneous .MEDSUPPLY Qty: 100 5RF Rx Instructions: As directed to use with insulin vial multivitamin [Multiple Vitamins] Tablet 1 tab PO QAM hydrocortisone 2.5 % ointment 1 applic TOP BID PRN (Reason: .) Rx Instructions: Apply to areas of the eyelid twice daily x 5 days, then once daily x 5 days. Lenvima 10 mg/day (10 mg x 1) capsule 10 mg PO UD (DME) CPAP Supplies Misc Rx Instructions: BiPAP SUPPLIES; DX: G47.30; LENGTH OF NEED: 99 MONTHS Discharge Orders: Discharge Order (Routine); Ordered 12/23/24 Ordered By: Castillo Walton/Other Patient Handouts: Managing Type 2 Diabetes Admission Data Admit Date/Time: 12/19/24 16:55 Attending Provider: Castillo Dash Admit Provider: Castillo Dash Primary Care Provider: Chantal Saxena Other Providers: Castillo Dash; Nikki Loomis Hospital Stay Data Consultations 12/19/24 16:46 ED Decision to Admit Stat 12/19/24 16:53 Consult Pulmonology Routine Procedures Performed Operation Date: 12/22/24 07:30 Actual Procedures p Pleurx Cath Insertion - Nikki Loomis MD Pending Results Patient Have Any Pending Studies at Discharge: No Discharge Instructions Given to Patient (Per Discharging Provider) Follow up with Pulmonary in 1 week Total Time Total Time Spent Total Time Spent (In Minutes): 50 Coding Level of Care Code 51074 INP/OBS DISCH >30 MIN Diagnoses Recurrent left pleural effusion J90 Type 2 diabetes mellitus E11.9 Diabetes mellitus family preservation officer insulin use: without family preservation officer use Renal cell carcinoma of left kidney metastatic to other site C64.2 Laterality: left
--- NOTE | 2024-12-23 12:03 | XRay Report ---
SINGLE VIEW CHEST CLINICAL HISTORY: Follow-up pleural catheter placement. FINDINGS: An AP, portable, upright chest radiograph is compared to study dated 12/22/2024 and correla abelardo with chest CT dated 01/10/2024. A right internal jugular central venous infusion port is unchanged in position. The heart is enlarged. The pulmonary vasculature is noncongested. A pleural catheter is again seen at the left lung base. There is a layering left pleural effusion with consolidation of th e left lower lung. The volume of pleural fluid has decreased from yesterday. Right lung appears clear noting basilar scarring/atelectasis. A pleural-based mass lesion is again seen at the left apex. The left basilar pleural mass and destructive rib change is better appreciated by CT. No pneumothorax is seen. The skeletal structures are osteopenic. Degenerative change is noted in the shoulders and spin e. IMPRESSION: 1. Cardiomegaly without radiographic evidence of congestive failure. 2. A pleural catheter is again seen at the left lung base with persistent pleural fluid and consolida tion in the left lower lung. The volume of pleural fluid appears decreased from previous. 3. Left apical mass is again noted. ACT 112: Negative or not required by law. Electronically signed by: Kashmir Garrido M.D. 12/23/2024 12:00 PM
[2024-12-23 12:31] VITALS: RESP 18
[2024-12-23 12:42] VITALS: BP 122/73; PULSE 103; TEMP 97.9; O2SAT 95
--- NOTE | 2024-12-25 06:29 | Electrocardiogram Report ---
Test Reason : Blood Pressure : */* mmHG Vent. Rate : 112 BPM Atrial Rate : 112 BPM P-R Int : 152 ms QRS Dur : 82 ms QT Int : 338 ms P-R-T Axes : 32 16 61 degrees QTcB Int : 461 ms Sinus tachycardia with occasional Premature ventricular complexes Low voltage QRS Nonspecific T wave abnormality Abnormal ECG When compared with ECG of 16-Feb-2023 15:47, Premature atrial complexes are no longer Present Nonspecific T wave abnormality now evident in Lateral leads Confirmed by Colt Eric ([id number]) on 12/25/2024 6:29:06 AM Referred By: Confirmed By: Colt Eric
[2024-12-25] MEDS ORDERED: REMOVE & WASTE BUTRANS PATCH 1 EA EA SCH (08:59)
[2024-12-25] MEDS ORDERED: BUPRENORPHINE 10 MCG/HR TDSY TD SCH (09:00)
== END 2024-12-23 14:30 | disposition home health service (06) | DRG 180 ==
LOC: SUATTDRO → ED 15:34 → 2W 16:55